=== PATIENT | female | born 1940 | race African-American/Black ===

== ENCOUNTER 2019-01-04 08:39 | Inpatient (IN) ==
[2019-01-04 09:36] LABS: Basophils % 0.2 % (0.0-0.8); Hematocrit 42.9 VOL% (35.7-47.0); Hemoglobin 13.4 GM/DL (12.0-16.0); Immature Granulocytes % 0.9 %; Immature Granulocytes Absolute 0.05 #; Lymphocytes # 0.7 10*3/uL (1.4-4.0); Lymphocytes % 11.7 % (21.3-54.2); Mean Corpuscular HGB Conc 31.2 GM/DL (32-36); Mean Corpuscular Volume 86.5 FL (87-102); Mean Platelet Volume 10.5 FL (9.6-12.0); Monocytes % 4.8 % (1.7-12.7); Neutrophils % 82.4 % (38.7-73.9); Platelet Count 203 T/CUMM (130-400); Red Blood Count 4.96 MC/CUMM (3.8-5.5); Red Cell Distribution Width 14.4 % (9.3-17.3); White Blood Count 5.8 T/CUMM (4-12)
[2019-01-04 09:48] LABS: PT Patient Result 10.4 SECS (9.6-12.2); Partial Thromboplastin Time 23.4 SECS (20.8-36.0)
[2019-01-04 09:56] LABS: Albumin 3.1 G/DL (3.4-5.0); Bilirubin,Total 0.4 MG/DL (0.2-1.0); Calcium 9.2 MG/DL (8.5-10.1); Osmolality,Calculated 290.5 MOS/KG (273-304); Total Protein 7.3 G/DL (6.4-8.3)
[2019-01-04 10:42] LABS: Barbiturates Screen,Urine Negative (Negative); Benzodiazepines Screen,Urine Negative (Negative); Cannabinoid Screen,Urine Negative (Negative); Opiate Screen,Urine Negative (Negative); Phencyclidine Screen,Urine Negative (Negative)
[2019-01-04 10:43] LABS: Apearance,Urine CLOUDY (Clear); Bacteria,Urine Many /HPF (Few); Bilirubin,Urine Negative (Negative); Blood, Urine Small mg/dL (Negative); Glucose,Urine (UA) >=500 mg/dL (Negative); Hyaline Casts,Urine 134 /LPF (0-3); Ketones,Urine Negative (Negative); Mucus,Urine Moderate /LPF (Occasional); Nitrite,Urine Positive (Negative); Protein,Urine 30 MG/DL; RBC,Urine 136 /HPF (0-4); Squamous Epithelial Cell,Urine Occasional /HPF (0-10); Urine Color Amber (Yellow); Urine Specific Gravity 1.016 (1.001-1.035); Urine Urobilinogen < 2.0 EU/DL (0.2-1.0); WBC,Urine 80 /HPF (0-6)
[2019-01-04] MEDS ORDERED: cefTRIAXone 1,000 MG in SODIUM CHLORIDE 0.9% 100 ML IV STA (11:12)
[2019-01-04] MEDS ORDERED: ONDANSETRON 4 MG/2 ML VIAL IV PRN (12:04)
[2019-01-04] MEDS: DEXTROSE 5% NACL 0.45% 1,000 ML IV SCH ×2 (12:22→21:51)
[2019-01-04] MEDS ORDERED: MEROPENEM 2,000 MG in SODIUM CHLORIDE 0.9% 100 ML IV SCH (12:30)
[2019-01-04] MEDS: ENOXAPARIN 40 MG/0.4 ML SYRINGE SUBCUT SCH (14:53)
[2019-01-05] MEDS: DEXTROSE 10% 1,000 ML IV SCH ×2 (01:23→01:58)
[2019-01-05] MEDS: DEXTROSE 10% 500 ML IV SCH ×2 (01:57→11:43)
[2019-01-05 05:04] LABS: Basophils % 0.1 % (0.0-0.8); Eosinophils % 0.6 % (0.00-10.9); Hemoglobin 13.4 GM/DL (12.0-16.0); Immature Granulocytes % 1.1 %; Immature Granulocytes Absolute 0.08 #; Lymphocytes # 1.6 10*3/uL (1.4-4.0); Lymphocytes % 22.4 % (21.3-54.2); Mean Corpuscular HGB Conc 31.9 GM/DL (32-36); Mean Corpuscular Volume 85.7 FL (87-102); Mean Platelet Volume 10.1 FL (9.6-12.0); Monocytes % 9.8 % (1.7-12.7); Platelet Count 190 T/CUMM (130-400); Red Cell Distribution Width 14.1 % (9.3-17.3)
[2019-01-05 05:33] LABS: Calcium 8.6 MG/DL (8.5-10.1); Osmolality,Calculated 275.7 MOS/KG (273-304)
[2019-01-05] MEDS ORDERED: FLUoxetine 20 MG CAPSULE PO SCH (09:00)
[2019-01-05] MEDS: ASCORBIC ACID 500 MG TABLET PO SCH (09:27)
[2019-01-05] MEDS: PANTOPRAZOLE 40 MG TABLET PO SCH (09:27)
[2019-01-05] MEDS: ASPIRIN CHEW 81 MG TABLET PO SCH (09:27)
[2019-01-05] MEDS: CLOPIDOGREL 75 MG TABLET PO SCH (09:27)
[2019-01-05] MEDS: ATENOLOL 50 MG TABLET PO SCH (09:28)
[2019-01-05] MEDS: MULTIVITAMIN (CENTRUM) TABLET PO SCH (09:28)
[2019-01-05] MEDS: LISINOPRIL 20 MG TABLET PO SCH (09:28)
[2019-01-05] MEDS: cefTRIAXone 1,000 MG in SYRINGE 1 EACH IV SCH (09:29)
[2019-01-05] MEDS: ENOXAPARIN 40 MG/0.4 ML SYRINGE SUBCUT SCH (11:43)
[2019-01-05 15:15] LABS: Protein/Creatinine Ratio,Urine 0.3 RATIO
[2019-01-05] MEDS: SIMVASTATIN 10 MG TABLET PO SCH (20:32)
[2019-01-06] MEDS: DEXTROSE 10% 500 ML IV SCH (04:20)
[2019-01-06 05:55] LABS: Basophils % 0.6 % (0.0-0.8); Eosinophils # 0.1 10*3/uL (0.0-0.87); Eosinophils % 1.5 % (0.00-10.9); Hematocrit 39.1 VOL% (35.7-47.0); Hemoglobin 12.4 GM/DL (12.0-16.0); Immature Granulocytes % 1.9 %; Immature Granulocytes Absolute 0.12 #; Lymphocytes # 1.9 10*3/uL (1.4-4.0); Lymphocytes % 30.1 % (21.3-54.2); Mean Corpuscular HGB Conc 31.7 GM/DL (32-36); Mean Platelet Volume 10.8 FL (9.6-12.0); Monocytes % 12.2 % (1.7-12.7); Neutrophils % 53.7 % (38.7-73.9); Platelet Count 178 T/CUMM (130-400); Red Cell Distribution Width 14.2 % (9.3-17.3); White Blood Count 6.2 T/CUMM (4-12)
[2019-01-06 06:21] LABS: Calcium 8.5 MG/DL (8.5-10.1)
[2019-01-06] MEDS: MULTIVITAMIN (CENTRUM) TABLET PO SCH (09:26)
[2019-01-06] MEDS: LISINOPRIL 20 MG TABLET PO SCH (09:26)
[2019-01-06] MEDS: cefTRIAXone 1,000 MG in SYRINGE 1 EACH IV SCH (09:26)
[2019-01-06] MEDS: POTASSIUM CHLORIDE 20 MEQ TABLET PO SCH ×2 (09:27→12:11)
[2019-01-06] MEDS: ATENOLOL 50 MG TABLET PO SCH (09:27)
[2019-01-06] MEDS: ASCORBIC ACID 500 MG TABLET PO SCH (09:27)
[2019-01-06] MEDS: ESCITALOPRAM 10 MG TABLET PO SCH (09:27)
[2019-01-06] MEDS: ASPIRIN CHEW 81 MG TABLET PO SCH (09:27)
[2019-01-06] MEDS: PANTOPRAZOLE 40 MG TABLET PO SCH (09:28)
[2019-01-06] MEDS: CLOPIDOGREL 75 MG TABLET PO SCH (09:28)
[2019-01-06] MEDS: ENOXAPARIN 40 MG/0.4 ML SYRINGE SUBCUT SCH (12:10)
[2019-01-06] MEDS: AMOXICILLIN/CLAV 500 MG TABLET PO SCH (21:35)
[2019-01-06] MEDS: SIMVASTATIN 10 MG TABLET PO SCH (21:36)
[2019-01-07 06:01] LABS: Calcium 8.6 MG/DL (8.5-10.1); Osmolality,Calculated 287.1 MOS/KG (273-304)
[2019-01-07] MEDS: ESCITALOPRAM 10 MG TABLET PO SCH (09:09)
[2019-01-07] MEDS: LISINOPRIL 20 MG TABLET PO SCH (09:09)
[2019-01-07] MEDS: MULTIVITAMIN (CENTRUM) TABLET PO SCH (09:10)
[2019-01-07] MEDS: ATENOLOL 50 MG TABLET PO SCH (09:10)
[2019-01-07] MEDS: AMOXICILLIN/CLAV 500 MG TABLET PO SCH ×2 (09:10→22:29)
[2019-01-07] MEDS: ASPIRIN CHEW 81 MG TABLET PO SCH (09:10)
[2019-01-07] MEDS: PANTOPRAZOLE 40 MG TABLET PO SCH (09:10)
[2019-01-07] MEDS: CLOPIDOGREL 75 MG TABLET PO SCH (09:10)
[2019-01-07] MEDS: ASCORBIC ACID 500 MG TABLET PO SCH (09:10)
[2019-01-07] MEDS ORDERED: MAGNESIUM SULFATE 1 GM/2 ML VIAL IM ONE (10:00)
[2019-01-07] MEDS: ENOXAPARIN 40 MG/0.4 ML SYRINGE SUBCUT SCH (11:32)
[2019-01-07] MEDS: SIMVASTATIN 10 MG TABLET PO SCH (22:29)
[2019-01-08] MEDS: AMOXICILLIN/CLAV 500 MG TABLET PO SCH ×2 (08:36→22:22)
[2019-01-08] MEDS: CLOPIDOGREL 75 MG TABLET PO SCH (08:36)
[2019-01-08] MEDS: ASPIRIN CHEW 81 MG TABLET PO SCH (08:36)
[2019-01-08] MEDS: LISINOPRIL 20 MG TABLET PO SCH (08:36)
[2019-01-08] MEDS: ATENOLOL 50 MG TABLET PO SCH (08:36)
[2019-01-08] MEDS: ASCORBIC ACID 500 MG TABLET PO SCH (08:37)
[2019-01-08] MEDS: ESCITALOPRAM 10 MG TABLET PO SCH (08:37)
[2019-01-08] MEDS: metFORMIN 500 MG TABLET PO SCH ×2 (08:37→16:22)
[2019-01-08] MEDS: PANTOPRAZOLE 40 MG TABLET PO SCH (08:37)
[2019-01-08] MEDS: MULTIVITAMIN (CENTRUM) TABLET PO SCH (08:37)
[2019-01-08] MEDS: ENOXAPARIN 40 MG/0.4 ML SYRINGE SUBCUT SCH (16:22)
[2019-01-08] MEDS: SIMVASTATIN 10 MG TABLET PO SCH (22:22)
[2019-01-09 07:53] LABS: Basophils % 0.5 % (0.0-0.8); Eosinophils # 0.1 10*3/uL (0.0-0.87); Eosinophils % 1.2 % (0.00-10.9); Hematocrit 39.6 VOL% (35.7-47.0); Hemoglobin 12.6 GM/DL (12.0-16.0); Immature Granulocytes % 0.7 %; Immature Granulocytes Absolute 0.03 #; Lymphocytes # 1.4 10*3/uL (1.4-4.0); Lymphocytes % 33.5 % (21.3-54.2); Mean Corpuscular HGB Conc 31.8 GM/DL (32-36); Mean Platelet Volume 10.4 FL (9.6-12.0); Neutrophils % 51.1 % (38.7-73.9); Platelet Count 168 T/CUMM (130-400); Red Blood Count 4.66 MC/CUMM (3.8-5.5); Red Cell Distribution Width 14.3 % (9.3-17.3); White Blood Count 4.1 T/CUMM (4-12)
[2019-01-09 08:06] LABS: Calcium 8.9 MG/DL (8.5-10.1)
[2019-01-09 08:07] LABS: Osmolality,Calculated 277.8 MOS/KG (273-304)
[2019-01-09] MEDS: MULTIVITAMIN (CENTRUM) TABLET PO SCH (09:04)
[2019-01-09] MEDS: LISINOPRIL 20 MG TABLET PO SCH (09:04)
[2019-01-09] MEDS: metFORMIN 500 MG TABLET PO SCH (09:04)
[2019-01-09] MEDS: ATENOLOL 50 MG TABLET PO SCH (09:04)
[2019-01-09] MEDS: PANTOPRAZOLE 40 MG TABLET PO SCH (09:04)
[2019-01-09] MEDS: CLOPIDOGREL 75 MG TABLET PO SCH (09:05)
[2019-01-09] MEDS: ESCITALOPRAM 10 MG TABLET PO SCH (09:05)
[2019-01-09] MEDS: ASPIRIN CHEW 81 MG TABLET PO SCH (09:05)
[2019-01-09] MEDS: ASCORBIC ACID 500 MG TABLET PO SCH (09:05)
[2019-01-09] MEDS: ENOXAPARIN 40 MG/0.4 ML SYRINGE SUBCUT SCH (09:05)
[2019-01-09 11:59] VITALS: BP 124/60
== END 2019-01-09 13:56 | DRG 637 ==
LOC: EDBD → EDUNIT# → N.ED 08:39 → N.EDINP 08:39 → N.2E 13:45 → SUATTDRO 01-05 15:33
PROVIDERS: ADMIT Internal Medicine Cardiovascular Disease; ATTEND Internal Medicine